=== PATIENT | female | born 1965 | race African-American/Black ===

== ENCOUNTER 2021-11-02 15:05 | Observation (INO) ==
[2021-11-02 18:20] LABS: Basophils # 0.1 10*3/uL (0.0-0.2); Basophils % 0.7 % (0.0-0.8); Eosinophils # 0.1 10*3/uL (0.0-0.87); Eosinophils % 1.2 % (0.00-10.9); Hematocrit 37.1 VOL% (35.7-47.0); Hemoglobin 12.2 GM/DL (12.0-16.0); Immature Granulocytes % 0.4 %; Immature Granulocytes Absolute 0.03 #; Lymphocytes # 2.3 10*3/uL (1.4-4.0); Lymphocytes % 28.1 % (21.3-54.2); Mean Corpuscular HGB Conc 32.9 GM/DL (32-36); Mean Corpuscular Volume 85.7 FL (87-102); Mean Platelet Volume 9.9 FL (9.6-12.0); Monocytes # 0.4 10*3/uL (0.11-0.8); Monocytes % 4.6 % (1.7-12.7); Platelet Count 271 T/CUMM (130-400); Red Blood Count 4.33 MC/CUMM (3.8-5.5); Red Cell Distribution Width 12.3 % (9.3-17.3); White Blood Count 8.3 T/CUMM (4-12)
[2021-11-02 18:22] LABS: Hyaline Casts,Urine 6 /LPF (0-3); RBC,Urine 1 /HPF (0-4); Squamous Epithelial Cell,Urine Few /HPF (0-10)
[2021-11-02 18:24] LABS: Bilirubin,Urine Negative (Negative); Blood, Urine Negative (Negative); Glucose,Urine (UA) Negative (Negative); Ketones,Urine Negative (Negative); Nitrite,Urine Negative (Negative); Protein,Urine Negative (Negative); Urine Appearance Clear (Clear); Urine Color Yellow (Yellow); Urine Specific Gravity 1.025 (1.001-1.035); Urine Urobilinogen 0.2 eU/dL (<2.0); Urine pH 5.5 (4.5-8.0)
[2021-11-02] MEDS ORDERED: cefTRIAXone 1,000 MG in SODIUM CHLORIDE 0.9% 100 ML IV STA (19:01)
[2021-11-02 19:11] LABS: Albumin 3.8 G/DL (3.4-5.0); Bilirubin,Total 0.5 MG/DL (0.20-1.00); Calcium 9.6 MG/DL (8.5-10.1); Osmolality,Calculated 280.4 MOS/KG (273-304); Potassium 3.1 MMOL/L (3.5-5.1); Total Protein 7.3 G/DL (6.4-8.2)
[2021-11-02] MEDS ORDERED: POTASSIUM CHLORIDE 20 MEQ TABLET PO STA (20:16)
[2021-11-02] MEDS ORDERED: ONDANSETRON 4 MG/2 ML VIAL IV PRN (22:26)
[2021-11-02] MEDS ORDERED: GLUCAGON 1 MG VIAL IM PRN (22:26)
[2021-11-02] MEDS ORDERED: PANTOPRAZOLE 40 MG VIAL IV STA (22:32)
[2021-11-02] MEDS ORDERED: DEXTROSE 10% 250 ML BAG IV PRN (22:35)
[2021-11-02] MEDS: LACTATED RINGERS 1,000 ML IV SCH (23:25)
[2021-11-02] MEDS: METOCLOPRAMIDE 10 MG/2 ML VIAL IV SCH (23:46)
[2021-11-03] MEDS: METOCLOPRAMIDE 10 MG/2 ML VIAL IV SCH ×4 (05:33→23:42)
[2021-11-03 06:07] LABS: Basophils # 0.1 10*3/uL (0.0-0.2); Basophils % 0.6 % (0.0-0.8); Eosinophils # 0.1 10*3/uL (0.0-0.87); Eosinophils % 1.7 % (0.00-10.9); Hemoglobin 10.1 GM/DL (12.0-16.0); Immature Granulocytes % 0.3 %; Immature Granulocytes Absolute 0.02 #; Lymphocytes # 2.8 10*3/uL (1.4-4.0); Lymphocytes % 35.8 % (21.3-54.2); Mean Corpuscular HGB Conc 33.7 GM/DL (32-36); Mean Corpuscular Volume 84.3 FL (87-102); Mean Platelet Volume 10.1 FL (9.6-12.0); Monocytes # 0.4 10*3/uL (0.11-0.8); Monocytes % 5.3 % (1.7-12.7); Neutrophils % 56.3 % (38.7-73.9); Platelet Count 216 T/CUMM (130-400); Red Blood Count 3.56 MC/CUMM (3.8-5.5); Red Cell Distribution Width 12.1 % (9.3-17.3); White Blood Count 7.9 T/CUMM (4-12)
[2021-11-03 06:35] LABS: Calcium 9.1 MG/DL (8.5-10.1); Osmolality,Calculated 283.8 MOS/KG (273-304); Potassium 2.7 MMOL/L (3.5-5.1); Risk Ratio 3.05; Thyroid Stimulating Hormone 2.32 uIU/ml (0.358-3.74)
[2021-11-03] MEDS: INSULIN REGULAR 100 UNIT/ML SUBCUT SCH ×4 (08:59→20:32)
[2021-11-03] MEDS ORDERED: ENOXAPARIN 40 MG/0.4 ML SYRINGE SUBCUT SCH (09:00)
[2021-11-03] MEDS: POTASSIUM BICARB EFFERVESCENT 20 MEQ TAB.EFF PO SCH ×2 (09:38→16:15)
[2021-11-03] MEDS: POTASSIUM CHLORIDE 20 MEQ TABLET PO PRN ×2 (09:38→16:15)
[2021-11-03] MEDS: PANTOPRAZOLE 40 MG VIAL IV SCH (09:43)
[2021-11-03] MEDS: ACETAMINOPHEN 325 MG TABLET PO PRN ×4 (09:46→23:41)
[2021-11-03] MEDS: LACTATED RINGERS 1,000 ML IV SCH (16:15)
[2021-11-03] MEDS ORDERED: cefTRIAXone 1,000 MG in SODIUM CHLORIDE 0.9% 100 ML IV SCH (20:00)
[2021-11-04] MEDS: POTASSIUM BICARB EFFERVESCENT 20 MEQ TAB.EFF PO SCH
[2021-11-04] MEDS: LACTATED RINGERS 1,000 ML IV SCH (05:29)
[2021-11-04] MEDS: METOCLOPRAMIDE 10 MG/2 ML VIAL IV SCH ×2 (05:31→16:37)
[2021-11-04 06:16] LABS: Basophils # 0.1 10*3/uL (0.0-0.2); Basophils % 0.6 % (0.0-0.8); Eosinophils # 0.2 10*3/uL (0.0-0.87); Eosinophils % 2.5 % (0.00-10.9); Hemoglobin 10.6 GM/DL (12.0-16.0); Immature Granulocytes % 0.2 %; Immature Granulocytes Absolute 0.02 #; Lymphocytes # 2.3 10*3/uL (1.4-4.0); Mean Corpuscular HGB Conc 33.1 GM/DL (32-36); Mean Platelet Volume 9.9 FL (9.6-12.0); Monocytes # 0.4 10*3/uL (0.11-0.8); Monocytes % 5.2 % (1.7-12.7); Neutrophils % 63.5 % (38.7-73.9); Platelet Count 233 T/CUMM (130-400); Red Blood Count 3.81 MC/CUMM (3.8-5.5); Red Cell Distribution Width 12.1 % (9.3-17.3); White Blood Count 8.3 T/CUMM (4-12)
[2021-11-04 06:39] LABS: Albumin 3.2 G/DL (3.4-5.0); Bilirubin,Total 0.4 MG/DL (0.20-1.00); Calcium 9.4 MG/DL (8.5-10.1); Osmolality,Calculated 285.8 MOS/KG (273-304); Potassium 3.9 MMOL/L (3.5-5.1); Total Protein 6.3 G/DL (6.4-8.2)
[2021-11-04] MEDS ORDERED: LACTATED RINGERS 1,000 ML IV SCH (08:00)
[2021-11-04] MEDS: INSULIN REGULAR 100 UNIT/ML SUBCUT SCH ×2 (08:52→11:34)
[2021-11-04] MEDS ORDERED: propofoL 200 MG/20 ML VIAL IV ONE (10:08)
[2021-11-04] MEDS ORDERED: LIDOCAINE 2% 5 ML VIAL ONE (10:09)
[2021-11-04] MEDS: ACETAMINOPHEN 325 MG TABLET PO PRN (11:25)
[2021-11-04] MEDS: PANTOPRAZOLE 40 MG VIAL IV SCH (11:30)
[2021-11-04 11:43] VITALS: BP 152/81
[2021-11-04] MEDS ORDERED: ONDANSETRON ODT 4 MG TABLET PO PRN (14:01)
[2021-11-04] MEDS ORDERED: GABAPENTIN 100 MG CAPSULE PO SCH (15:00)
[2021-11-04] MEDS ORDERED: AMOXICILLIN/CLAV XR 1000 MG TABLET PO SCH (21:00)
[2021-11-05] MEDS ORDERED: PANTOPRAZOLE 40 MG TABLET PO SCH (06:30)
== END 2021-11-04 15:00 | disposition home or self-care (01) ==
LOC: N.ED 15:05 → N.EDINP 15:05 → SUATTDRO 22:26 → N.EDINP 23:27 → N.5E 23:31 → SUATTDRO 11-03 08:50
PROVIDERS: ADMIT Internal Medicine; ATTEND Family Medicine